=== PATIENT | female | born 1940 | race Caucasian/White ===

== ENCOUNTER 2016-08-10 12:46 | Outpatient (CLI) | payer OTHER ==
--- NOTE | 2016-08-10 13:15 | DIAGNOSTIC IMAGING REPORT ---
PROCEDURE: XR CERVICAL SPINE 2 OR 3 VIEW INDICATION: NECK SPRAIN TECHNIQUE: Three views. COMPARISON: None. FINDINGS: Spondylosis C5-6 with the disc space narrowing small posterior osteophytic ridge No evidence of an acute process or fracture. IMPRESSION: 1. Spondylosis C5-6.
== END 2016-08-10 23:00 | disposition home or self-care (01) ==
LOC: XR SRH 12:46
DX: M47.812 Spondylosis without myelopathy or radiculopathy, cervical region (principal)